=== PATIENT | male | born 1935 | race Caucasian/White ===

== ENCOUNTER → 2016-10-16 | Outpatient (REF) ==
[~2016-10-16] MED LIST: ACCUPRIL5MGTAB PO; ALDACTONE 25MG25 M1 PO; ASPIRIN 81M81 MG/TA2 PO; CORDARONE200 MG/TAB PO; COREG 3.123.125 MG/T PO; COUMADIN 5MG5 MG/TAB PO; DEMADEX10 MG PO; FLOVENT DI100 MCG/Ac IH; IPRATROPIUM BROM3 M1 IH; KLOR-CON 1010 MEQ PO; LANOXIN 0.120.125 MG PO; LASIX 20MG TABL20 MG PO; LIPITOR20 MG PO; MAG-OX 400400 MG/TAB PO; MEDROL 4MG DOSPA4 MG PO; MUCINEX 60600 MG/TA1; MUCINEX 60600 MG/TA1 PO; PACERONE200 MG PO; PRILOSEC 20MG20 MG PO; PROSCAR 5MG5 MG PO; SENNA8.6 MG PO; SINGULAIR 110 MG/TAB PO; STOOL SOFTENER100 M2 PO; SYNTHROID0.125 MG/T PO; TIROSINT100 MC1 PO; TOPROL XL 25MG25 MG PO; XARELTO20 MG PO; ZITHROMAX 250M250 MG PO
== END ==
LOC: ZLAB.WCH 14:46
DX: Z01.89 Encounter for other specified special examinations (principal)

== ENCOUNTER 2016-12-31 13:38 | Emergency (ER) | payer MEDICARE, BC ==
[~2016-12-31] VITALS: Ht 165.1 cm; Wt 70.5 kg
[~2016-12-31 13:38] MED LIST changes: -DEMADEX10 MG PO; -FLOVENT DI100 MCG/Ac IH; -MEDROL 4MG DOSPA4 MG PO; -MUCINEX 60600 MG/TA1; -MUCINEX 60600 MG/TA1 PO; -PACERONE200 MG PO; -SINGULAIR 110 MG/TAB PO; -STOOL SOFTENER100 M2 PO; -SYNTHROID0.125 MG/T PO; -TOPROL XL 25MG25 MG PO; -XARELTO20 MG PO; -ZITHROMAX 250M250 MG PO
[2016-12-31 13:42] VITALS: TEMP 97
[2016-12-31 14:30] LABS: BASO # 0.1 (0.0-0.2); BASO % 0.9 % (0.0-2.0); EOS # 0.3 (0.0-0.7); EOS % 4.2 % (0-4.0); GRAN % 72.9 % (42.2-75.2); HEMOGLOBIN 13.2 g/dl (13.5-18.0); LYMPH # 0.8 (1.2-3.4); LYMPH % 11.7 % (20.0-51.0); MEAN CELL VOLUME 94 fl (80.0-100.0); MEAN CORPUSCULAR HEMOGLOBIN 32 pg (27.0-31.0); MEAN CORPUSCULAR HGB CONC 34 g/dl (33.0-37.0); MEAN PLATELET VOLUME 10.5 fl (7.4-10.4); MONO # 0.7 (0.1-0.6); MONO % 9.9 % (1.7-9.3); PLATELET COUNT 160 K/mm3 (130-400); RED BLOOD COUNT 4.15 M/mm3 (4.20-5.60); REDCELL DISTRIBUTION WIDTH-CV 13.3 % (11.5-14.5); WHITE BLOOD COUNT 6.9 K/mm3 (4.8-10.8)
[2016-12-31 14:43] LABS: CALCIUM 8.8 mg/dL (8.4-10.2); CREATININE, serum 1.01 mg/dL (0.66-1.25); POTASSIUM 4.4 mmol/L (3.4-5.0)
[2016-12-31 14:55] LABS: TROPONIN-I 0.02 ng/mL (0.000-0.034)
[2016-12-31 17:22] VITALS: BP 115/61; PULSE 62
[2016-12-31 17:36] LABS: INR 1.9 (0.8-3.0); PROTHROMBIN TIME 22.1 SECONDS (9.7-12.8)
== END 2016-12-31 17:34 | disposition home or self-care (01) ==
LOC: COL.ER 13:38
PROVIDERS: Emergency Medicine
DX: R55 Syncope and collapse (principal); Z45.02 Encounter for adjustment and management of automatic implantable cardiac defibrillator; I48.92 Unspecified atrial flutter; Z79.01 Long term (current) use of anticoagulants
CPT/HCPCS: J7030

== ENCOUNTER 2017-01-13 08:05 | Inpatient (IN) | payer MEDICARE, BC ==
[2017-01-13] VITALS (856 sets, daily range): BP systolic 101–114; BP diastolic 64–82; PULSE 59–60; TEMP 97.8–98.4; O2SAT 86–100
[~2017-01-13] VITALS: Ht 167.6 cm; Wt 70.5 kg
[2017-01-13 08:23] LABS: ARTERIAL BLD GAS O2 SATURATION 96.4 % (92-100); ARTERIAL BLD GAS TCO2 CT 27.1; ARTERIAL BLOOD GAS BASE EXCESS 0.5 (-2-2); ARTERIAL BLOOD GAS HCO3 25.7 meq/L (22-26); ARTERIAL BLOOD GAS PHT 7.39 C (7.35-7.45); ARTERIAL BLOOD GAS PO2 91.7 mmHg (80-100); ARTERIAL BLOOD GAS PO2T 91.7 (80-100); ARTERIAL BLOOD GAS pH 7.39 (7.35-7.45); OXYHEMOGLOBIN 95.7 %
[2017-01-13 08:24] LABS: ATS? YES
[2017-01-13 08:26] LABS: BASO # 0.1 (0.0-0.2); EOS # 0.3 (0.0-0.7); EOS % 4.9 % (0-4.0); GRAN # 4.8 (1.4-6.5); GRAN % 69.3 % (42.2-75.2); HEMATOCRIT 39.9 % (42.0-52.0); HEMOGLOBIN 13.8 g/dl (13.5-18.0); LYMPH # 1.1 (1.2-3.4); LYMPH % 15.6 % (20.0-51.0); MEAN CELL VOLUME 93 fl (80.0-100.0); MEAN CORPUSCULAR HEMOGLOBIN 32 pg (27.0-31.0); MEAN CORPUSCULAR HGB CONC 35 g/dl (33.0-37.0); MEAN PLATELET VOLUME 10.9 fl (7.4-10.4); MONO # 0.6 (0.1-0.6); MONO % 8.8 % (1.7-9.3); PLATELET COUNT 142 K/mm3 (130-400); RED BLOOD COUNT 4.29 M/mm3 (4.20-5.60); REDCELL DISTRIBUTION WIDTH-CV 13.3 % (11.5-14.5); WHITE BLOOD COUNT 6.9 K/mm3 (4.8-10.8)
[2017-01-13 08:29] LABS: PROTHROMBIN TIME 22.7 SECONDS (9.7-12.8)
[2017-01-13 08:31] LABS: PARTIAL THROMBOPLASTIN TIME 38.2 SECONDS (26.0-37.0)
[2017-01-13 08:35] LABS: ADJUSTED CALCIUM 8.5 mg/dL (8.4-10.2); ALBUMIN 3.9 gm/dL (3.5-5.0); BILIRUBIN,TOTAL 0.7 mg/dL (0.0-1.0); CALCIUM 8.4 mg/dL (8.4-10.2); POTASSIUM 3.7 mmol/L (3.4-5.0); TOTAL PROTEIN 7.3 gm/dL (6.4-8.2)
[2017-01-13 08:46] LABS: TROPONIN-I 0.018 ng/mL (0.000-0.034)
[2017-01-14] VITALS (830 sets, daily range): BP systolic 100–103; BP diastolic 49–65; PULSE 59–62; TEMP 97.8–98.8; O2SAT 85–100
[2017-01-14 05:56] LABS: CALCIUM 8.4 mg/dL (8.4-10.2); CREATININE, serum 1.02 mg/dL (0.66-1.25); MAGNESIUM 1.8 mg/dL (1.6-2.3); POTASSIUM 3.7 mmol/L (3.4-5.0)
[2017-01-14 06:14] LABS: TROPONIN-I 0.367 ng/mL (0.000-0.034)
[2017-01-14 06:26] LABS: THYROID STIMULATING HORMONE 8.2 uIU/mL (0.465-4.680)
[2017-01-14] MEDS ORDERED: CORDARONE200 MG/TAB PO (11:17)
== END 2017-01-14 13:45 | disposition home or self-care (01) | DRG 282 ==
LOC: COL.ER 08:07 → ICU 09:00
PROVIDERS: Emergency Medicine; Internal Medicine
DX: I48.91 Unspecified atrial fibrillation (principal); I21.4 Non-ST elevation (NSTEMI) myocardial infarction; E03.9 Hypothyroidism, unspecified; I50.9 Heart failure, unspecified; Z95.810 Presence of automatic (implantable) cardiac defibrillator; Z79.01 Long term (current) use of anticoagulants
CPT/HCPCS: 99223-AI; 99238; J0282; J1940; J7060

== ENCOUNTER 2017-01-20 03:14 | Observation (INO) | payer MEDICARE, BC ==
[~2017-01-20] VITALS: Ht 167.6 cm; Wt 70.5 kg
[2017-01-20 03:35] LABS: BASO # 0.1 (0.0-0.2); BASO % 0.9 % (0.0-2.0); EOS # 0.4 (0.0-0.7); EOS % 4.1 % (0-4.0); GRAN # 6.2 (1.4-6.5); GRAN % 67.3 % (42.2-75.2); HEMATOCRIT 40.9 % (42.0-52.0); HEMOGLOBIN 13.8 g/dl (13.5-18.0); LYMPH # 1.6 (1.2-3.4); LYMPH % 17.7 % (20.0-51.0); MEAN CELL VOLUME 94 fl (80.0-100.0); MEAN CORPUSCULAR HEMOGLOBIN 32 pg (27.0-31.0); MEAN CORPUSCULAR HGB CONC 34 g/dl (33.0-37.0); MEAN PLATELET VOLUME 10.7 fl (7.4-10.4); MONO # 0.9 (0.1-0.6); MONO % 9.3 % (1.7-9.3); PLATELET COUNT 179 K/mm3 (130-400); RED BLOOD COUNT 4.36 M/mm3 (4.20-5.60); REDCELL DISTRIBUTION WIDTH-CV 13.2 % (11.5-14.5); WHITE BLOOD COUNT 9.2 K/mm3 (4.8-10.8)
[2017-01-20 03:38] LABS: INR 2.5 (0.8-3.0); PROTHROMBIN TIME 29.3 SECONDS (9.7-12.8)
[2017-01-20 03:47] LABS: ADJUSTED CALCIUM 8.9 mg/dL (8.4-10.2); ALBUMIN 4.2 gm/dL (3.5-5.0); BILIRUBIN,TOTAL 1.1 mg/dL (0.0-1.0); CALCIUM 9.1 mg/dL (8.4-10.2); CREATININE, serum 1.14 mg/dL (0.66-1.25); POTASSIUM 4.1 mmol/L (3.4-5.0); TOTAL PROTEIN 7.7 gm/dL (6.4-8.2)
[2017-01-20 03:58] LABS: TROPONIN-I 0.034 ng/mL (0.000-0.034)
[2017-01-20 06:15] VITALS: BP 93/49; PULSE 60; TEMP 97.9
[2017-01-20 07:24] VITALS: BP 98/52; PULSE 65; TEMP 97.8
[2017-01-20 12:29] VITALS: BP 110/55; PULSE 57; TEMP 97.1
[2017-01-20 16:13] VITALS: BP 111/57; PULSE 60; TEMP 97.5
[2017-01-20 20:01] VITALS: BP 112/61; PULSE 83; TEMP 97.8
[2017-01-20 22:28] VITALS: BP 103/55; PULSE 60; TEMP 97.6
[2017-01-21 03:30] VITALS: BP 103/52; PULSE 64; TEMP 98.2
[2017-01-21 07:58] VITALS: BP 112/58; PULSE 61; TEMP 98
[2017-01-21] MEDS ORDERED: SYNTHROID0.125 MG/T PO (08:36)
[2017-01-21 10:15] VITALS: BP 110/58; PULSE 62
[2017-01-21 11:28] VITALS: BP 102/53; PULSE 60; TEMP 97.9
[2017-01-21 15:24] VITALS: BP 102/57; PULSE 60; TEMP 97.7
[2017-01-21 19:58] VITALS: BP 104/57; PULSE 69; TEMP 98.3
[2017-01-22 00:02] VITALS: BP 101/45; PULSE 59; TEMP 98.3
[2017-01-22 03:52] VITALS: BP 93/41; PULSE 59; TEMP 97.6
[2017-01-22 07:37] VITALS: BP 105/65; PULSE 75; TEMP 97.8
== END 2017-01-22 10:55 | disposition home or self-care (01) ==
LOC: COL.ER 03:14 → MEDICAL 04:52
PROVIDERS: Emergency Medicine
DX: I48.91 Unspecified atrial fibrillation (principal); I25.10 Atherosclerotic heart disease of native coronary artery without angina pectoris; I25.2 Old myocardial infarction; I10 Essential (primary) hypertension; I50.9 Heart failure, unspecified; Z95.0 Presence of cardiac pacemaker; Z95.810 Presence of automatic (implantable) cardiac defibrillator; Z79.01 Long term (current) use of anticoagulants; E03.9 Hypothyroidism, unspecified; N40.0 Benign prostatic hyperplasia without lower urinary tract symptoms
CPT/HCPCS: 99232-AI; G0378; G0463; J0282; J7030; J7040

== ENCOUNTER 2017-02-22 02:36 | Observation (INO) | payer MEDICARE, BC ==
[~2017-02-22] VITALS: Ht 167.6 cm; Wt 69.2 kg
[2017-02-22] VITALS (691 sets, daily range): BP systolic 81–113; BP diastolic 45–67; PULSE 59–75; TEMP 97–98.4; O2SAT 86–100
[~2017-02-22 02:36] MED LIST changes: +SYNTHROID0.125 MG/T PO
[2017-02-22] MEDS ORDERED: CORDARONE200 MG/TAB PO (03:16)
[2017-02-22 03:19] LABS: BASO % 0.5 % (0.0-2.0); EOS # 0.1 (0.0-0.7); EOS % 0.6 % (0-4.0); GRAN # 6.9 (1.4-6.5); GRAN % 85.8 % (42.2-75.2); HEMOGLOBIN 12.3 g/dl (13.5-18.0); LYMPH # 0.5 (1.2-3.4); LYMPH % 6.5 % (20.0-51.0); MEAN CELL VOLUME 95 fl (80.0-100.0); MEAN CORPUSCULAR HEMOGLOBIN 32 pg (27.0-31.0); MEAN CORPUSCULAR HGB CONC 33 g/dl (33.0-37.0); MEAN PLATELET VOLUME 11.1 fl (7.4-10.4); MONO # 0.5 (0.1-0.6); MONO % 6.1 % (1.7-9.3); PLATELET COUNT 152 K/mm3 (130-400); RED BLOOD COUNT 3.89 M/mm3 (4.20-5.60); REDCELL DISTRIBUTION WIDTH-CV 13.6 % (11.5-14.5); WHITE BLOOD COUNT 8.1 K/mm3 (4.8-10.8)
[2017-02-22 03:21] LABS: HEMATOCRIT 36.9 % (42.0-52.0)
[2017-02-22 03:24] LABS: INR 2.1 (0.8-3.0); PROTHROMBIN TIME 24.4 SECONDS (9.7-12.8)
[2017-02-22 03:26] LABS: PARTIAL THROMBOPLASTIN TIME 53.9 SECONDS (26.0-37.0)
[2017-02-22 03:37] LABS: ADJUSTED CALCIUM 9.1 mg/dL (8.4-10.2); ALBUMIN 3.9 gm/dL (3.5-5.0); CREATININE, serum 1.27 mg/dL (0.66-1.25); POTASSIUM 4.3 mmol/L (3.4-5.0); TOTAL PROTEIN 7.1 gm/dL (6.4-8.2)
[2017-02-22 03:50] LABS: TROPONIN-I 0.077 ng/mL (0.000-0.034)
[2017-02-22 04:20] LABS: DIGOXIN 1.2 ng/mL (0.8-2.0)
[2017-02-23] VITALS (697 sets, daily range): BP systolic 90–119; BP diastolic 46–66; PULSE 65–75; TEMP 97–98.6; O2SAT 87–100
[2017-02-23 05:20] LABS: BASO % 0.1 % (0.0-2.0); GRAN # 6.5 (1.4-6.5); GRAN % 94.3 % (42.2-75.2); LYMPH # 0.2 (1.2-3.4); LYMPH % 2.9 % (20.0-51.0); MEAN CELL VOLUME 94 fl (80.0-100.0); MEAN CORPUSCULAR HGB CONC 34 g/dl (33.0-37.0); MEAN PLATELET VOLUME 11.5 fl (7.4-10.4); MONO # 0.2 (0.1-0.6); MONO % 2.3 % (1.7-9.3); PLATELET COUNT 140 K/mm3 (130-400); RED BLOOD COUNT 3.66 M/mm3 (4.20-5.60); REDCELL DISTRIBUTION WIDTH-CV 13.4 % (11.5-14.5); WHITE BLOOD COUNT 6.9 K/mm3 (4.8-10.8)
[2017-02-23 05:21] LABS: HEMATOCRIT 34.5 % (42.0-52.0); HEMOGLOBIN 11.6 g/dl (13.5-18.0); MEAN CORPUSCULAR HEMOGLOBIN 32 pg (27.0-31.0)
[2017-02-23 05:25] LABS: INR 2.1 (0.8-3.0); PROTHROMBIN TIME 24.4 SECONDS (9.7-12.8)
[2017-02-23 05:29] LABS: CALCIUM 8.5 mg/dL (8.4-10.2); MAGNESIUM 1.9 mg/dL (1.6-2.3)
[2017-02-23 05:44] LABS: TROPONIN-I 0.247 ng/mL (0.000-0.034)
[2017-02-24 03:58] VITALS: BP 93/50; PULSE 71; TEMP 97.8
[2017-02-24 07:25] VITALS: BP 95/62; PULSE 71; TEMP 97.8
[2017-02-24 07:38] LABS: HEMOGLOBIN 12.1 g/dl (13.5-18.0); MEAN CELL VOLUME 94 fl (80.0-100.0); MEAN CORPUSCULAR HEMOGLOBIN 32 pg (27.0-31.0); MEAN CORPUSCULAR HGB CONC 34 g/dl (33.0-37.0); MEAN PLATELET VOLUME 11.5 fl (7.4-10.4); PLATELET COUNT 149 K/mm3 (130-400); RED BLOOD COUNT 3.79 M/mm3 (4.20-5.60); REDCELL DISTRIBUTION WIDTH-CV 13.7 % (11.5-14.5); WHITE BLOOD COUNT 11.6 K/mm3 (4.8-10.8)
[2017-02-24 07:44] LABS: HEMATOCRIT 35.5 % (42.0-52.0)
[2017-02-24 07:45] LABS: ADD PATHOLOGY DIFF REVIEW NO; CALCIUM 8.7 mg/dL (8.4-10.2); CREATININE, serum 1.04 mg/dL (0.66-1.25); MAGNESIUM 2.1 mg/dL (1.6-2.3); POTASSIUM 4.2 mmol/L (3.4-5.0)
[2017-02-24 08:03] LABS: INR 3.3 (0.8-3.0); PROTHROMBIN TIME 38.2 SECONDS (9.7-12.8)
[2017-02-24 08:12] LABS: BAND 9 % (0-10); NEUTROPHILS 86 % (42.0-75.2); PLATELET ESTIMATE NORMAL (NORMAL); TOTAL CELLS COUNTED 100
[2017-02-24 11:34] VITALS: BP 92/52; PULSE 68; TEMP 97.7
[2017-02-24 15:35] VITALS: BP 94/57; PULSE 70; TEMP 97.6
[2017-02-24] MEDS ORDERED: ZITHROMAX 250M250 MG PO (16:51)
[2017-02-24] MEDS ORDERED: PACERONE200 MG PO (16:52)
[2017-02-24] MEDS ORDERED: MUCINEX 60600 MG/TA1 PO (16:53)
[2017-02-24] MEDS ORDERED: MEDROL 4MG DOSPA4 MG PO (16:54)
[2017-02-24] MEDS ORDERED: SINGULAIR 110 MG/TAB PO (16:55)
[2017-02-24] MEDS ORDERED: FLOVENT DI100 MCG/Ac IH (16:57)
== END 2017-02-24 18:20 | disposition home or self-care (01) ==
LOC: COL.ER 02:36 → ICU 04:20 → COL.ER 04:20 → ICU 02-23 11:45 → MEDICAL 02-23 11:45
PROVIDERS: Emergency Medicine; Family Medicine; Internal Medicine Cardiovascular Disease
DX: Z09 Encounter for follow-up examination after completed treatment for conditions other than malignant neoplasm (principal); Z95.810 Presence of automatic (implantable) cardiac defibrillator; I48.91 Unspecified atrial fibrillation; I50.20 Unspecified systolic (congestive) heart failure; I25.5 Ischemic cardiomyopathy; I10 Essential (primary) hypertension; Z79.01 Long term (current) use of anticoagulants; I08.3 Combined rheumatic disorders of mitral, aortic and tricuspid valves; I25.10 Atherosclerotic heart disease of native coronary artery without angina pectoris; Z95.5 Presence of coronary angioplasty implant and graft; E03.9 Hypothyroidism, unspecified; J20.9 Acute bronchitis, unspecified; J42 Unspecified chronic bronchitis; I25.2 Old myocardial infarction; E78.5 Hyperlipidemia, unspecified; N40.0 Benign prostatic hyperplasia without lower urinary tract symptoms; K21.9 Gastro-esophageal reflux disease without esophagitis; Z86.73 Personal history of transient ischemic attack (TIA), and cerebral infarction without residual deficits; M19.90 Unspecified osteoarthritis, unspecified site
CPT/HCPCS: 99239; A9502; G0378; J0282; J0696; J2704; J2930; J7030; J7060; J7512

== ENCOUNTER 2017-03-02 20:19 | Inpatient (IN) | payer MEDICARE, BC ==
[~2017-03-02] VITALS: Ht 167.6 cm; Wt 63.1 kg
[2017-03-02] VITALS (73 sets, daily range): BP systolic 96; BP diastolic 57; PULSE 69; TEMP 98.5; O2SAT 89–97
[~2017-03-02 20:19] MED LIST changes: +FLOVENT DI100 MCG/Ac IH; +MEDROL 4MG DOSPA4 MG PO; +MUCINEX 60600 MG/TA1 PO; +PACERONE200 MG PO; +SINGULAIR 110 MG/TAB PO; +ZITHROMAX 250M250 MG PO
[2017-03-02 21:06] LABS: ADJUSTED CALCIUM 9.1 mg/dL (8.4-10.2); ALBUMIN 3.7 gm/dL (3.5-5.0); BILIRUBIN,TOTAL 1.1 mg/dL (0.0-1.0); CALCIUM 8.9 mg/dL (8.4-10.2); CREATININE, serum 1.1 mg/dL (0.66-1.25); MAGNESIUM 1.9 mg/dL (1.6-2.3); POTASSIUM 4.7 mmol/L (3.4-5.0)
[2017-03-02 21:12] LABS: BASO % 0.2 % (0.0-2.0); EOS # 0.1 (0.0-0.7); EOS % 1.1 % (0-4.0); GRAN # 7.5 (1.4-6.5); GRAN % 77.5 % (42.2-75.2); HEMATOCRIT 40.7 % (42.0-52.0); LYMPH # 0.9 (1.2-3.4); LYMPH % 9.5 % (20.0-51.0); MEAN CELL VOLUME 93 fl (80.0-100.0); MEAN CORPUSCULAR HEMOGLOBIN 32 pg (27.0-31.0); MEAN CORPUSCULAR HGB CONC 34 g/dl (33.0-37.0); MEAN PLATELET VOLUME 11.2 fl (7.4-10.4); MONO % 9.8 % (1.7-9.3); PLATELET COUNT 232 K/mm3 (130-400); REDCELL DISTRIBUTION WIDTH-CV 13.7 % (11.5-14.5); WHITE BLOOD COUNT 9.7 K/mm3 (4.8-10.8)
[2017-03-02 21:18] LABS: INR 2.2 (0.8-3.0); PROTHROMBIN TIME 25.7 SECONDS (9.7-12.8); TROPONIN-I 0.03 ng/mL (0.000-0.034)
[2017-03-02 21:22] LABS: DIGOXIN 1.2 ng/mL (0.8-2.0)
[2017-03-03] VITALS (586 sets, daily range): BP systolic 93–120; BP diastolic 50–82; PULSE 69–74; TEMP 97.2–98.3; O2SAT 76–100
[2017-03-03 06:15] LABS: HEMATOCRIT 42.5 % (42.0-52.0); HEMOGLOBIN 14.2 g/dl (13.5-18.0); MEAN CELL VOLUME 94 fl (80.0-100.0); MEAN CORPUSCULAR HEMOGLOBIN 31 pg (27.0-31.0); MEAN CORPUSCULAR HGB CONC 33 g/dl (33.0-37.0); MEAN PLATELET VOLUME 10.5 fl (7.4-10.4); PLATELET COUNT 204 K/mm3 (130-400); RED BLOOD COUNT 4.52 M/mm3 (4.20-5.60); REDCELL DISTRIBUTION WIDTH-CV 13.9 % (11.5-14.5); WHITE BLOOD COUNT 8.9 K/mm3 (4.8-10.8)
[2017-03-03 06:17] LABS: ADD PATHOLOGY DIFF REVIEW NO; INR 2.2 (0.8-3.0); PROTHROMBIN TIME 25.7 SECONDS (9.7-12.8)
[2017-03-03 06:25] LABS: CALCIUM 8.9 mg/dL (8.4-10.2); CREATININE, serum 1.17 mg/dL (0.66-1.25)
[2017-03-03 06:39] LABS: TROPONIN-I 0.06 ng/mL (0.000-0.034)
[2017-03-03 06:50] LABS: BAND 5 % (0-10); NEUTROPHILS 72 % (42.0-75.2); PLATELET ESTIMATE NORMAL (NORMAL); TOTAL CELLS COUNTED 100; TOXIC GRANULATION PRESENT
[2017-03-04] VITALS (383 sets, daily range): BP systolic 94–104; BP diastolic 53–66; PULSE 69–90; TEMP 97.2–97.9; O2SAT 89–99
[2017-03-04 06:06] LABS: HEMOGLOBIN 14.4 g/dl (13.5-18.0); MEAN CELL VOLUME 93 fl (80.0-100.0); MEAN CORPUSCULAR HEMOGLOBIN 32 pg (27.0-31.0); MEAN CORPUSCULAR HGB CONC 34 g/dl (33.0-37.0); MEAN PLATELET VOLUME 10.7 fl (7.4-10.4); PLATELET COUNT 218 K/mm3 (130-400); RED BLOOD COUNT 4.54 M/mm3 (4.20-5.60); REDCELL DISTRIBUTION WIDTH-CV 13.7 % (11.5-14.5); WHITE BLOOD COUNT 6.8 K/mm3 (4.8-10.8)
[2017-03-04 06:11] LABS: ADD PATHOLOGY DIFF REVIEW NO
[2017-03-04 06:13] LABS: PROTHROMBIN TIME 22.8 SECONDS (9.7-12.8)
[2017-03-04 06:25] LABS: ALBUMIN 3.5 gm/dL (3.5-5.0); BILIRUBIN,TOTAL 1.2 mg/dL (0.0-1.0); CALCIUM 8.6 mg/dL (8.4-10.2); CREATININE, serum 1.13 mg/dL (0.66-1.25); POTASSIUM 3.7 mmol/L (3.4-5.0); TOTAL PROTEIN 6.8 gm/dL (6.4-8.2)
[2017-03-04 07:07] LABS: BAND 7 % (0-10); EOSINOPHIL 2 % (0-4); METAMYELOCYTE 2 % (0-0); NEUTROPHILS 62 % (42.0-75.2); PLATELET ESTIMATE NORMAL (NORMAL); TOTAL CELLS COUNTED 100
[2017-03-04] MEDS ORDERED: FLOVENT DI100 MCG/Ac IH (12:57)
== END 2017-03-04 14:00 | disposition home or self-care (01) | DRG 293 ==
LOC: COL.ER 20:19 → ICU 21:50 → IMCU 03-03 10:19 → ICU 03-03 10:19
PROVIDERS: Emergency Medicine; Family Medicine; Nurse Practitioner Family
DX: I11.0 Hypertensive heart disease with heart failure (principal); I50.23 Acute on chronic systolic (congestive) heart failure; E03.9 Hypothyroidism, unspecified; I25.2 Old myocardial infarction; I25.5 Ischemic cardiomyopathy; E78.5 Hyperlipidemia, unspecified; K21.9 Gastro-esophageal reflux disease without esophagitis; N40.0 Benign prostatic hyperplasia without lower urinary tract symptoms; Z86.73 Personal history of transient ischemic attack (TIA), and cerebral infarction without residual deficits; Z95.810 Presence of automatic (implantable) cardiac defibrillator; Z79.01 Long term (current) use of anticoagulants
CPT/HCPCS: 99223-AI; 99239; J1250

== ENCOUNTER 2017-03-18 09:27 | Emergency (ER) | payer MEDICARE, BC ==
[~2017-03-18] VITALS: Ht 167.6 cm; Wt 62.3 kg
[2017-03-18 09:35] VITALS: TEMP 97.9
[2017-03-18 11:19] LABS: INR 2.2 (0.8-3.0); PROTHROMBIN TIME 25.4 SECONDS (9.7-12.8)
[2017-03-18 11:22] LABS: ADJUSTED CALCIUM 9.2 mg/dL (8.4-10.2); ALBUMIN 3.5 gm/dL (3.5-5.0); CALCIUM 8.8 mg/dL (8.4-10.2); CREATININE, serum 1.15 mg/dL (0.66-1.25); PARTIAL THROMBOPLASTIN TIME 43.8 SECONDS (26.0-37.0); POTASSIUM 3.6 mmol/L (3.4-5.0); TOTAL PROTEIN 6.6 gm/dL (6.4-8.2)
[2017-03-18 11:34] LABS: BASO % 0.8 % (0.0-2.0); EOS # 0.1 (0.0-0.7); EOS % 2.3 % (0-4.0); GRAN % 76.6 % (42.2-75.2); HEMATOCRIT 38.9 % (42.0-52.0); HEMOGLOBIN 13.4 g/dl (13.5-18.0); LYMPH # 0.6 (1.2-3.4); LYMPH % 10.7 % (20.0-51.0); MEAN CELL VOLUME 92 fl (80.0-100.0); MEAN CORPUSCULAR HEMOGLOBIN 32 pg (27.0-31.0); MEAN CORPUSCULAR HGB CONC 34 g/dl (33.0-37.0); MEAN PLATELET VOLUME 11.3 fl (7.4-10.4); MONO # 0.5 (0.1-0.6); MONO % 8.8 % (1.7-9.3); PLATELET COUNT 120 K/mm3 (130-400); RED BLOOD COUNT 4.23 M/mm3 (4.20-5.60); REDCELL DISTRIBUTION WIDTH-CV 13.8 % (11.5-14.5); WHITE BLOOD COUNT 5.2 K/mm3 (4.8-10.8)
[2017-03-18] MEDS ORDERED: DEMADEX10 MG PO (11:36)
[2017-03-18 11:39] LABS: TROPONIN-I 0.039 ng/mL (0.000-0.034)
[2017-03-18 13:13] VITALS: BP 109/53; PULSE 69
== END 2017-03-18 13:10 | disposition short-term general hospital (02) ==
LOC: COL.ER 09:27
PROVIDERS: Emergency Medicine
DX: I21.4 Non-ST elevation (NSTEMI) myocardial infarction (principal); I47.2 Ventricular tachycardia; Z79.01 Long term (current) use of anticoagulants; Z79.82 Long term (current) use of aspirin

== ENCOUNTER 2017-03-24 13:31 | Observation (INO) | payer MEDICARE, BC ==
[~2017-03-24] VITALS: Ht 170.2 cm; Wt 65.6 kg
[~2017-03-24 13:31] MED LIST changes: +DEMADEX10 MG PO
[2017-03-24 14:00] LABS: BASO # 0.1 (0.0-0.2); BASO % 0.7 % (0.0-2.0); EOS # 0.2 (0.0-0.7); EOS % 2.5 % (0-4.0); GRAN % 73.8 % (42.2-75.2); HEMATOCRIT 35.5 % (42.0-52.0); HEMOGLOBIN 12.2 g/dl (13.5-18.0); LYMPH # 0.7 (1.2-3.4); LYMPH % 10.6 % (20.0-51.0); MEAN CELL VOLUME 93 fl (80.0-100.0); MEAN CORPUSCULAR HEMOGLOBIN 32 pg (27.0-31.0); MEAN CORPUSCULAR HGB CONC 34 g/dl (33.0-37.0); MEAN PLATELET VOLUME 10.5 fl (7.4-10.4); MONO # 0.8 (0.1-0.6); MONO % 11.5 % (1.7-9.3); PLATELET COUNT 164 K/mm3 (130-400); REDCELL DISTRIBUTION WIDTH-CV 14.3 % (11.5-14.5); WHITE BLOOD COUNT 6.8 K/mm3 (4.8-10.8)
[2017-03-24 14:02] LABS: INR 1.6 (0.8-3.0); PROTHROMBIN TIME 18.6 SECONDS (9.7-12.8)
[2017-03-24 14:04] LABS: ADJUSTED CALCIUM 9.1 mg/dL (8.4-10.2); ALBUMIN 3.3 gm/dL (3.5-5.0); BILIRUBIN,TOTAL 1.2 mg/dL (0.0-1.0); CALCIUM 8.5 mg/dL (8.4-10.2); CREATININE, serum 0.8 mg/dL (0.66-1.25); POTASSIUM 3.6 mmol/L (3.4-5.0); TOTAL PROTEIN 6.5 gm/dL (6.4-8.2)
[2017-03-24 14:21] LABS: TROPONIN-I 0.703 ng/mL (0.000-0.034)
[2017-03-24] MEDS ORDERED: MUCINEX 60600 MG/TA1 (15:45)
[2017-03-24] MEDS ORDERED: TOPROL XL 25MG25 MG PO (15:45)
[2017-03-24] MEDS ORDERED: XARELTO20 MG PO (15:48)
[2017-03-24] MEDS ORDERED: STOOL SOFTENER100 M2 PO (15:49)
[2017-03-24] MEDS ORDERED: SINGULAIR 110 MG/TAB PO (15:51)
[2017-03-24 16:20] LABS: MAGNESIUM 1.5 mg/dL (1.6-2.3)
[2017-03-24 16:42] LABS: DIGOXIN 1.1 ng/mL (0.8-2.0)
[2017-03-24 18:49] VITALS: BP 102/55; PULSE 80; TEMP 98.9
[2017-03-24 19:15] VITALS: BP 89/53; PULSE 80; TEMP 98.2
[2017-03-24 21:59] VITALS: BP 103/57; PULSE 84; TEMP 98.2
[2017-03-24 23:23] VITALS: BP 104/55; PULSE 81; TEMP 99.1
[2017-03-25 04:04] VITALS: BP 104/59; PULSE 87; TEMP 98.5
[2017-03-25 08:20] VITALS: BP 93/56; PULSE 80; TEMP 98.2
[2017-03-25 09:55] VITALS: BP 96/54; PULSE 80; TEMP 98.4
[2017-03-25 11:18] VITALS: BP 89/45; PULSE 78; TEMP 98.3
[2017-03-25 14:20] VITALS: BP 94/51; PULSE 80; TEMP 97.9
[2017-03-25 16:04] VITALS: BP 96/54; PULSE 88; TEMP 97.8
== END 2017-03-25 19:00 | disposition home or self-care (01) ==
LOC: COL.ER 13:31 → MEDICAL 16:55
PROVIDERS: Emergency Medicine
DX: R00.2 Palpitations (principal); I48.91 Unspecified atrial fibrillation; I95.9 Hypotension, unspecified; I25.10 Atherosclerotic heart disease of native coronary artery without angina pectoris; I11.0 Hypertensive heart disease with heart failure; I50.9 Heart failure, unspecified; I42.0 Dilated cardiomyopathy; I25.2 Old myocardial infarction; E03.9 Hypothyroidism, unspecified; K21.9 Gastro-esophageal reflux disease without esophagitis; E78.5 Hyperlipidemia, unspecified; N40.0 Benign prostatic hyperplasia without lower urinary tract symptoms; Z95.0 Presence of cardiac pacemaker; Z95.5 Presence of coronary angioplasty implant and graft; Z95.818 Presence of other cardiac implants and grafts; Z79.01 Long term (current) use of anticoagulants; Z86.73 Personal history of transient ischemic attack (TIA), and cerebral infarction without residual deficits; Z82.49 Family history of ischemic heart disease and other diseases of the circulatory system
CPT/HCPCS: G0378; J3475

== ENCOUNTER → 2017-09-19 | Outpatient (REF) ==
[~2017-09-19] MED LIST changes: +MUCINEX 60600 MG/TA1; +STOOL SOFTENER100 M2 PO; +TOPROL XL 25MG25 MG PO; +XARELTO20 MG PO
== END ==
LOC: ZLAB.WCH 18:04
DX: Z01.89 Encounter for other specified special examinations (principal)

== ENCOUNTER → 2017-10-28 | Outpatient (REF) | LOC: ZLAB.WCH 17:54 | DX: Z01.89 Encounter for other specified special examinations (principal) ==

== ENCOUNTER 2017-11-12 18:03 | Emergency (ER) | payer MEDICARE, BC ==
[~2017-11-12] VITALS: Ht 167.6 cm; Wt 61.4 kg
[2017-11-12 18:08] VITALS: TEMP 97
[2017-11-12 18:25] LABS: BASO # 0.1 (0.0-0.2); BASO % 0.6 % (0.0-2.0); EOS # 0.1 (0.0-0.7); EOS % 0.6 % (0-4.0); GRAN # 6.6 (1.4-6.5); GRAN % 84.3 % (42.2-75.2); HEMATOCRIT 34.9 % (42.0-52.0); HEMOGLOBIN 11.5 g/dl (13.5-18.0); LYMPH # 0.4 (1.2-3.4); LYMPH % 5.4 % (20.0-51.0); MEAN CELL VOLUME 78 fl (80.0-100.0); MEAN CORPUSCULAR HEMOGLOBIN 26 pg (27.0-31.0); MEAN CORPUSCULAR HGB CONC 33 g/dl (33.0-37.0); MONO # 0.7 (0.1-0.6); MONO % 8.5 % (1.7-9.3); PLATELET COUNT 198 K/mm3 (130-400); RED BLOOD COUNT 4.49 M/mm3 (4.20-5.60)
[2017-11-12 18:29] LABS: INR 1.7 (0.8-3.0); PROTHROMBIN TIME 19.4 SECONDS (9.7-12.8)
[2017-11-12 18:32] LABS: PARTIAL THROMBOPLASTIN TIME 49.7 SECONDS (26.0-37.0)
[2017-11-12 18:36] VITALS: BP 99/65
[2017-11-12 18:42] LABS: ALBUMIN 3.2 gm/dL (3.5-5.0); BILIRUBIN,TOTAL 0.8 mg/dL (0.0-1.0); C-REACTIVE PROTEIN 2.6 mg/dL (0.0-0.9); CALCIUM 8.1 mg/dL (8.4-10.2); CREATININE, serum 1.12 mg/dL (0.66-1.25); POTASSIUM 4.2 mmol/L (3.4-5.0)
[2017-11-12] MEDS ORDERED: XANAX .25M0.25 MG/TA PO (18:47)
[2017-11-12 18:51] LABS: TROPONIN-I 0.014 ng/mL (0.000-0.034)
[2017-11-12 19:30] VITALS: PULSE 80
== END 2017-11-12 19:35 | disposition home or self-care (01) ==
LOC: COL.ER 18:03
PROVIDERS: Family Medicine
DX: I50.9 Heart failure, unspecified (principal); R53.1 Weakness; P74.2 Disturbances of sodium balance of newborn; I25.10 Atherosclerotic heart disease of native coronary artery without angina pectoris; K21.9 Gastro-esophageal reflux disease without esophagitis; I42.9 Cardiomyopathy, unspecified; Z95.5 Presence of coronary angioplasty implant and graft; Z79.82 Long term (current) use of aspirin

== ENCOUNTER 2017-12-07 09:27 | Emergency (ER) | payer MEDICARE, BC ==
[~2017-12-07] VITALS: Ht 167.6 cm; Wt 65.9 kg
[~2017-12-07 09:27] MED LIST changes: +XANAX .25M0.25 MG/TA PO
[2017-12-07 09:31] VITALS: TEMP 97.5
[2017-12-07] MEDS ORDERED: LEXAPRO 5MG5 MG PO (09:54)
[2017-12-07 10:00] LABS: BASO # 0.1 (0.0-0.2); EOS # 0.2 (0.0-0.7); EOS % 3.5 % (0-4.0); GRAN # 4.9 (1.4-6.5); GRAN % 72.7 % (42.2-75.2); HEMOGLOBIN 10.8 g/dl (13.5-18.0); LYMPH # 0.8 (1.2-3.4); LYMPH % 11.9 % (20.0-51.0); MEAN CELL VOLUME 75 fl (80.0-100.0); MEAN CORPUSCULAR HEMOGLOBIN 25 pg (27.0-31.0); MEAN CORPUSCULAR HGB CONC 33 g/dl (33.0-37.0); MEAN PLATELET VOLUME 10.6 fl (7.4-10.4); MONO # 0.7 (0.1-0.6); MONO % 10.3 % (1.7-9.3); PLATELET COUNT 224 K/mm3 (130-400); REDCELL DISTRIBUTION WIDTH-CV 17.1 % (11.5-14.5)
[2017-12-07 10:01] LABS: HEMATOCRIT 32.4 % (42.0-52.0)
[2017-12-07] MEDS ORDERED: LAXATIVE PO (10:16)
[2017-12-07] MEDS ORDERED: [UNRECOGNIZED DRUG - OTHER] (10:17)
[2017-12-07 10:19] LABS: ALANINE AMINOTRANSFERASE 47 U/L (21-72); ALKALINE PHOSPHATASE 75 U/L (50-136); ANION GAP 12 mmol/L (7-16); AST,SGOT 36 U/L (15-37); BILIRUBIN,TOTAL 1.1 mg/dL (0.0-1.0); BLOOD UREA NITROGEN 21 mg/dL (9-20); CALCIUM 8.5 mg/dL (8.4-10.2); CARBON DIOXIDE 23 mmol/L (22-30); CHLORIDE 97 mmol/L (98-107); CREATININE, serum 0.96 mg/dL (0.66-1.25); GLUCOSE 108 mg/dL (74-106); LIPASE 100 U/L (23-300); POTASSIUM 4.1 mmol/L (3.4-5.0); SODIUM 131 mmol/L (137-145); TOTAL PROTEIN 6.6 gm/dL (6.4-8.2)
[2017-12-07 10:21] LABS: TROPONIN-I < 0.012 ng/mL (0.000-0.034)
[2017-12-07] MEDS ORDERED: AMBIEN CR 12.12.5 MG PO (10:42)
[2017-12-07] MEDS ORDERED: ZYRTEC 10MG10 MG PO (10:43)
[2017-12-07 10:59] LABS: TSH w REFLEX 7.73 uIU/mL (0.465-4.680)
[2017-12-07 11:55] VITALS: BP 97/50; PULSE 79
== END 2017-12-07 12:26 | disposition short-term general hospital (02) ==
LOC: COL.ER 09:27
PROVIDERS: Emergency Medicine
DX: R00.0 Tachycardia, unspecified (principal); I25.10 Atherosclerotic heart disease of native coronary artery without angina pectoris; I50.9 Heart failure, unspecified; Z86.73 Personal history of transient ischemic attack (TIA), and cerebral infarction without residual deficits; Z79.82 Long term (current) use of aspirin
CPT/HCPCS: J0282; J7060